=== PATIENT | male | born 1995 | race African-American/Black ===

== ENCOUNTER 2023-03-23 20:35 | Emergency (ER) | payer OTHER, SELFPAY ==
--- NOTE | ~2023-03-23 | XR_ITS ---
EXAMINATION: XR chest 2V Exam Date/Time: 03/23/2023 21:00 [facility] HISTORY: muscle spasms in chest Comparison: None. RESULT: Lines, tubes, and devices: None. Lungs and pleura: Clear. Cardiomediastinal silhouette: Normal. Other: No acute osseous or upper abdominal finding. IMPRESSION: No acute cardiopulmonary process. Reviewed, dictated and finalized at location [facility]
--- NOTE | 2023-03-23 20:38 | ECG_ITS ---
Measurements Intervals [place] Rate: 58 P: -9 WV: 143 QRS: -11 QRSD: 100 T: -5 QT: 382 QTc: 378 Interpretive Statements SINUS BRADYCARDIA T WAVE ABNORMALITY IN THE INFERIOR LEADS NO PREVIOUS ECG AVAILABLE FOR COMPARISON Electronically Signed On 03-23-2023 21:15:29 [employer] by Isabel Carpenter M.D.
[2023-03-23 20:55] LABS: Basophils Percent Auto 0.8 % (0.2-1.2); Eosinophils Absolute Auto 0.1 K/mm3 (0-0.3); Eosinophils Percent Auto 1.6 % (0-4.4); Hemoglobin 14.5 g/dL (14.0-18.0); Immature Granulocyte Absolute 0.02 K/mm3 (0.00-0.031); Immature Granulocyte Percent A 0.4 % (0-0.5); Lymphocytes Absolute Auto 1.27 K/mm3 (0.9-3.2); Lymphocytes Percent Auto 25.2 % (18.3-44.2); Mean Corpuscular HGB Conc 32.2 g/dl (32-36); Mean Corpuscular Hemoglobin 30.6 pg (26-34); Mean Corpuscular Volume 94.9 fl (80-100); Monocytes Absolute Auto 0.6 K/mm3 (0.1-0.6); Monocytes Percent Auto 11.3 % (2.6-8.5); Neutrophils Absolute Auto 3.1 K/mm3 (1.3-6.7); Neutrophils Percent Auto 60.7 % (45.5-73.1); Platelet Count Result 203 k/mm3 (150-375); Red Blood Count 4.74 M/mm3 (4.6-6.20); Red Cell Distribution Width 13.7 % (11.5-14.5)
[2023-03-23 21:06] LABS: Alanine Aminotransferase 66 U/L (6-50); Albumin Level 4.4 g/dL (3.5-5.1); Alkaline Phosphatase 75 U/L (38-126); Anion Gap 8 mmol/L (8-16); Aspartate Amino Transferase 57 U/L (17-59); Bilirubin,Total 0.6 mg/dL (0.2-1.3); Blood Urea Nitrogen 11 mg/dL (9-20); Calcium 9.1 mg/dL (8.4-10.2); Carbon Dioxide 26 mmol/L (22-30); Chloride 104 mmol/L (98-107); Estimated Glomerular Filt Rate > 60; Glucose 94 mg/dL (65-110); Lipase 41 U/L (23-300); Potassium 3.9 mmol/L (3.4-5.0); Sodium 138 mmol/L (137-145)
[2023-03-23 21:07] LABS: Prothrombin Time 13.1 Seconds (11.1-14.7)
[2023-03-23 21:16] LABS: Troponin I < 0.012 ng/mL (0.000-0.034)
[2023-03-23 21:19] VITALS: BP 132/80; PULSE 63; RESP 16; TEMP 36.7; O2SAT 100
[2023-03-23 23:48] VITALS: BP 131/93; PULSE 64; RESP 16; O2SAT 100
[2023-03-24 01:11] LABS: D Dimer 0.37 ug/mL (<0.48)
[2023-03-24 01:16] LABS: Troponin I < 0.012 ng/mL (0.000-0.034)
[2023-03-24 01:16] LABS: Magnesium 2.1 mg/dL (1.6-2.3)
--- NOTE | 2023-03-24 01:22 | ED.GENADULT ---
HPI - General Adult General Chief complaint: Unspecified Stated complaint: muscle spasms Time Seen by Provider: 03/24/23 00:29 History of Present Illness HPI narrative: patient is a 27-year-old gentleman who presents emergency department with chief complaint of muscle spasms in the left side of his chest. Patient reports that for a while he has been having spasms in the left side of his chest and feels a fullness in the left side of his chest. Patient reports that he has been seen at [facility] and also has been seen at [facility] and has been told to follow-up with a primary care provider the patient reports he was at work tonight felt spasming feeling in the left side of his chest and decided to come to our emergency department for re-evaluation. Patient reports no significant past medical history reports that he has no family history for early cardiac disease no history thromboembolic disease no history of sickle cell Related Data Allergies Allergy/AdvReac Type Severity Reaction Status Date / Time No Known Allergies Allergy Verified 03/23/23 21:17 Review of Systems Review of Systems: A 10 system review of systems was completed on the patient and is negative except for what is stated in the HPI. Nursing and ancillary documentation was reviewed. Exam Narrative: GENERAL: Well-appearing, well-nourished, and in no acute distress. HEAD: Normocephalic, atraumatic. EYES: PERRLA and EOMI. ENT: Nares clear, no rhinorrhea or epistaxis. Mucous membranes moist. NECK: Supple. CHEST: Clear to auscultation. No respiratory distress. HEART: Regular rate and rhythm. No murmur heard. Normal peripheral pulses. ABDOMEN: Soft, nontender, nondistended, normal active bowel sounds. EXTREMITIES: Normal range of motion. No edema. SKIN: Warm, dry, no rash. NEURO: No focal deficits. Alert and oriented x3. PSYCH: Normal mood and affect. Course Vital Signs Vital signs: Vital Signs Temperature 36.7 C 03/23/23 21:19 Pulse Rate 63 03/23/23 21:19 Respiratory Rate 16 03/23/23 21:19 Blood Pressure 132/80 03/23/23 21:19 Pulse Oximetry 100 03/23/23 21:19 Temperature 36.7 C 03/23/23 21:19 Pulse Rate 64 03/23/23 23:48 Respiratory Rate 16 03/23/23 23:48 Blood Pressure 131/93 H 03/23/23 23:48 Pulse Oximetry 100 03/23/23 23:48 Medical Decision Making MDM Narrative Medical decision making narrative: differential diagnosis includes noncardiac chest pain, ACS, electrolyte abnormality, EKG showed no acute ischemic changes chest x-ray showed no focal findings. Troponin was negative D-dimer was negative BNP was negative Vital Signs Vital Signs: Vital Signs Temperature 36.7 C 03/23/23 21:19 Pulse Rate 63 03/23/23 21:19 Respiratory Rate 16 03/23/23 21:19 Blood Pressure 132/80 03/23/23 21:19 Pulse Oximetry 100 03/23/23 21:19 Temperature 36.7 C 03/23/23 21:19 Pulse Rate 64 03/23/23 23:48 Respiratory Rate 16 03/23/23 23:48 Blood Pressure 131/93 H 03/23/23 23:48 Pulse Oximetry 100 03/23/23 23:48 Lab Data 03/23/23 20:49 03/23/23 20:49 Labs: Lab Results 03/23/23 03/23/23 03/24/23 Range/Units 20:48 20:49 00:44 WBC 5.0 (4.5-10.0) K/mm3 RBC 4.74 (4.6-6.20) M/mm3 Hgb 14.5 (14.0-18.0) g/dL Hct 45.0 (42.0-52.0) % MCV 94.9 (80-100) fl MCH 30.6 (26-34) pg MCHC 32.2 (32-36) g/dl RDW 13.7 (11.5-14.5) % Plt Count 203 (150-375) k/mm3 MPV 10.0 (7.4-10.4) fl Immature Gran % (Auto) 0.4 (0-0.5) % Neut % (Auto) 60.7 (45.5-73.1) % Lymph % (Auto) 25.2 (18.3-44.2) % [place] % (Auto) 11.3 H (2.6-8.5) % Eos % (Auto) 1.6 (0-4.4) % Baso % (Auto) 0.8 (0.2-1.2) % Lymph # (Auto) 1.27 (0.9-3.2) K/mm3 [place] # (Auto) 0.6 (0.1-0.6) K/mm3 Eos # (Auto) 0.1 (0-0.3) K/mm3 Baso # (Auto) 0.0 (0.0-0.1) K/mm3 Abs Immat Gran (auto)
[2023-03-24 01:25] LABS: NT Pro B Type Natriuretic Pept < 20 pg/mL (19.9-100)
[2023-03-24 02:29] VITALS: BP 144/67; PULSE 58; RESP 15; O2SAT 100
== END 2023-03-24 02:30 | disposition home or self-care (01) ==
PROVIDERS: Emergency Provider Emergency Medicine
DX: R07.89 Other chest pain (principal)
CPT/HCPCS: 36415; 71046; 80053; 83690; 83735; 83880; 84484; 85025; 85380; 85610; 85730; 93005; 99284